=== PATIENT | female | born 1965 | race African-American/Black ===

== ENCOUNTER 2024-02-05 05:20 | Emergency (ER) | payer MEDICAID ==
[~2024-02-05] VITALS: Ht 147.3 cm; Wt 68.0 kg
[2024-02-05] MEDS ORDERED: PROM118S5 PO (10:49)
[2024-02-05 11:10] VITALS: BP 110/82; TEMP 98.3; O2SAT 97
== END 2024-02-05 11:12 | disposition home or self-care (01) ==
LOC: ER 05:46
DX: R07.89 Other chest pain (principal); R09.1 Pleurisy; R05.9 Cough, unspecified; E11.9 Type 2 diabetes mellitus without complications; Z88.8 Allergy status to other drugs, medicaments and biological substances
CPT/HCPCS: 71045-TC; 82962-TC